=== PATIENT | female | born 1985 | race Caucasian/White ===

== ENCOUNTER 2017-02-13 21:35 | Emergency (ER) | payer MEDICAID, OTHER ==
[~2017-02-13] VITALS: Ht 154.9 cm; Wt 78.0 kg
[~2017-02-13 21:35] MED LIST: IRON18TA PO; PREN1TAB49 PO; PRENATALS
[2017-02-13 22:37] VITALS: Ht 154.9 cm; Wt 78.0 kg
[2017-02-13 23:22] LABS: ADD SCAN DIFF NO
[2017-02-13 23:26] LABS: BASOPHILS % 0.3 % (0.0-2.0); EOSINOPHILS # 0.3 10^3/ul (0.0-0.5); EOSINOPHILS % 3.4 % (0.0-7.0); HEMATOCRIT 35.9 % (37.0-47.0); HEMOGLOBIN 12.5 g/dl (12.0-16.0); LYMPHOCYTES # 3.5 10^3/ul (0.8-2.9); LYMPHOCYTES % 37.5 % (15.0-51.0); MEAN CORPUSCULAR HEMOGLOBIN 31.3 pg (29.0-33.0); MEAN CORPUSCULAR HGB CONC 34.8 g/dl (32.0-37.0); MEAN PLATELET VOLUME 8.8 fl (7.4-10.4); MONOCYTES % 10.3 % (0.0-11.0); NEUTROPHIL # 4.5 10^3/ul (1.6-7.5); NEUTROPHILS % 48.4 % (39.0-77.0); PLATELET COUNT 413 10^3/UL (140-415); RED BLOOD COUNT 3.99 10^6/ul (4.20-5.40); RED CELL DISTRIBUTION WIDTH 12.4 % (11.5-14.5); WHITE BLOOD COUNT 9.3 10^3/ul (4.8-10.8)
--- NOTE | 2017-02-13 23:45 | ERA ---
ER Documentation Chief Complaint Date/Time DATE: 02/13/17 TIME: 23:40 Chief Complaint C/O FEELING "SWOLLEN ALL OVER", SWOLLEN FEET,FEET HURT, ABD PAIN HPI 31-year-old female presenting with a chief complaint of bilateral leg swelling 1 month. Patient also states that there is mild pain at the bottom of her feet with the first few steps in the morning. Patient denies any medical conditions , leg or calf pain, claudication, nausea, vomiting, diarrhea, shortness of breath, or chest pain. ROS All systems reviewed and are negative except as per history of present illness. Medications Home Meds Reported Medications Iron (Iron) 18 Mg Tablet, 18 MG PO 04/27/12 Vits W-Ca,Fe,Fa(<1MG) () 1 Tab Tablet, 1 TAB PO DAILY 04/27/12 Vits W-Ca,Fe,Fa(<1MG) () 1 Tab Tablet, 1 TAB PO 04/01/12 [Prenatals] No Conflict Check 10/19/11 Allergies Allergies: Coded Allergies: No Known Drug Allergies (Verified Allergy, Unknown, 04/27/12) Uncoded Allergies: NONE (Allergy, 10/19/11) PMhx/Soc Medical and Surgical Hx: pt denies Medical Hx, pt denies Surgical Hx History of Surgery: No Anesthesia Reaction: No Hx Neurological Disorder: No Hx Respiratory Disorders: No Hx Cardiac Disorders: No Hx Psychiatric Problems: No Hx Miscellaneous Medical Probl: No Hx Alcohol Use: No Hx Substance Use: No Hx Tobacco Use: No Physical Exam Vitals Vital Signs Date Time Temp Pulse Resp B/P Pulse Ox O2 Delivery O2 Flow Rate FiO2 02/13/17 22:37 97.6 86 18 122/76 100 Physical Exam Const: Well-appearing, overweight 31-year-old female Head: Atraumatic Eyes: Normal Conjunctiva ENT: Normal External Ears, Nose and Mouth. Neck: Full range of motion..~ No meningismus. Resp: Clear to auscultation bilaterally Cardio: Regular rate and rhythm, no murmurs Abd: Soft, non tender, non distended. Normal bowel sounds Skin: No petechiae or rashes Back: No midline or flank tenderness Ext: Mild pitting edema of the feet bilaterally. Dorsalis pedis and posterior tibial pulses are 2+ bilaterally. Neur: Awake and alert. Neurovascularly intact bilaterally. Psych: Normal Mood and Affect Result Diagram: 02/13/17 2315 02/13/17 2315 Results 24 hrs Laboratory Tests Test 02/13/17 23:08 02/13/17 23:15 02/14/17 01:02 Urine Color LT. YELLOW Urine Clarity CLEAR Urine pH 6.0 Urine Specific [place] 1.025 Urine Ketones NEGATIVE Urine Nitrite NEGATIVE Urine Bilirubin NEGATIVE Urine Urobilinogen 1.0 E.U./dL Urine Leukocyte Esterase NEGATIVE Urine Hemoglobin NEGATIVE Urine Glucose NEGATIVE% Urine Total Protein NEGATIVE White Blood Count 9.310^3/ul Red Blood Count 3.9910^6/ul Hemoglobin 12.5g/dl Hematocrit 35.9% Mean Corpuscular Volume 90.0fl Mean Corpuscular Hemoglobin 31.3pg Mean Corpuscular Hemoglobin Concent 34.8g/dl Red Cell Distribution Width 12.4% Platelet Count 58441^3/UL Mean Platelet Volume 8.8fl Neutrophils % 48.4% Lymphocytes % 37.5% Monocytes % 10.3% Eosinophils % 3.4% Basophils % 0.3% Nucleated Red Blood Cells % 0.0/100WBC Neutrophils # 4.510^3/ul Lymphocytes # 3.510^3/ul Monocytes # 1.010^3/ul Eosinophils # 0.310^3/ul Basophils # 0.010^3/ul Nucleated Red Blood Cells # 0.010^3/ul Sodium Level 144mmol/L Potassium Level 3.9mmol/L Chloride Level 105mmol/L Carbon Dioxide Level 27mmol/L Anion Gap 16 Blood Urea Nitrogen 24mg/dl Creatinine 0.70mg/dl Glucose Level 93mg/dl Calcium Level 9.2mg/dl B-Type Natriuretic Peptide 17PG/ML Prothrombin Time 13.2Sec Prothrombin Time Ratio 1.0 INR International Normalized Ratio 1.00 Activated Partial Thromboplast Time 26.4Sec Procedures/MDM Patient's presenting with a chief complaint of bilateral leg swelling. At this time I very little suspicion for VTE as patient lacks any significant risk factors including only a score of 1 with well's criteria. Workup included a CBC , BMP and BNP to evaluate for any emergent pathologies. The laboratory results were largely unremarkable with only a slight elevation and lymphocytes and BUN. I have very little suspicion at this time for acute kidney injury, CHF, venous thromboembolisms or other infectious causes. At this time I am unable to rule out chronic conditions of the heart kidney and liver. Most likely diagnosis at this time is venous incompetence causing swelling of the feet bilaterally. Patient has stable vitals and her current condition is appropriate for discharge. Patient will be discharged with discharge instructions and return precautions. Patient is also be given a list of clinics that she can see for chronic management of her condition. Patient has verbally stated that she understands and agrees to the treatment plan. Departure Diagnosis: Primary Impression: Venous (peripheral) insufficiency Additional Impression: Swelling Condition: Stable Additional Instructions: Follow up with your PCP within the next 1-3 days for a more thorough evaluation and a possible referral to a specialist. Return the the emergency department immediately if symptoms worsen or change. If you have any questions regarding medications, ask your pharmacist or us before you leave. If any adverse reactions occur while taking your medications, discontinue the treatment and return to the emergency department immediately. Take your medications as directed, and complete the entire course of treatment. RAMAN MENDOZA PA-C Feb 13, 2017 23:45
[2017-02-13 23:51] LABS: CALCIUM 9.2 mg/dl (8.4-10.2); CREATININE 0.7 mg/dl (0.44-1.00); POTASSIUM 3.9 mmol/L (3.5-5.1)
[2017-02-14 01:24] LABS: ADD UMIC NO; UR BILIRUBIN (Dip) NEGATIVE (NEGATIVE); UR BLOOD (Dip) NEGATIVE (NEGATIVE); UR CLARITY CLEAR (CLEAR); UR COLOR LT. YELLOW (YELLOW); UR GLUCOSE (Dip) NEGATIVE (NEGATIVE); UR KETONES (Dip) NEGATIVE (NEGATIVE); UR LEUKOCYTE ESTERASE (Dip) NEGATIVE (NEGATIVE); UR NITRITE (Dip) NEGATIVE (NEGATIVE); UR TOTAL PROTEIN (Dip) NEGATIVE (NEGATIVE); UR UROBILINOGEN (Dip) 1.0 E.U./dL (0.1-1.0)
[2017-02-14 01:27] LABS: PROTIME 13.2 Sec (12.2-14.2)
[2017-02-14 01:28] LABS: PARTIAL THROMBOPLASTIN TIME 26.4 Sec (25.0-35.0)
[2017-02-14] MEDS ORDERED: ACET325T33 PO (01:37)
[2017-02-14 01:54] VITALS: BP 142/73; PULSE 85; RESP 16
== END 2017-02-14 01:54 | disposition home or self-care (01) ==
LOC: FTE 21:35
DX: I87.2 Venous insufficiency (chronic) (peripheral) (principal)
CPT/HCPCS: 80048; 81003; 83880; 85025; 85610; 85730; Z7502; 99283

== ENCOUNTER 2018-07-17 01:29 | Emergency (ER) | END 2018-07-17 04:26 | disposition home or self-care (01) ==

== ENCOUNTER 2018-09-19 07:36 | Day surgery (SDC) | payer OTHER ==
[~2018-09-19] VITALS: Ht 154.9 cm; Wt 70.0 kg
[2018-09-19] VITALS (18 sets, daily range): BP systolic 100–140; BP diastolic 11–80; PULSE 56–95; RESP 13–18; Ht 154.9 cm; Wt 70.0 kg
[~2018-09-19 07:36] MED LIST changes: +ACET325T33 PO; +ACETAMINOPHEN 500 MG TAB PO STA; +CEPH-443 PO; +DESFLURANE 15 MIN ONE; +FAMO-96 PO; +HYDR-4011 PO; +IBUP-1542 PO; +ONDA4TAB8 PO
[2018-09-19] MEDS ORDERED: CEFAZOLIN 2 GM/50 ML (PMX) 50 ML IVPB ONE (08:00)
[2018-09-19] MEDS ORDERED: SOD CHLORIDE 0.9% 1,000 ML IV SCH (08:00)
[2018-09-19] MEDS ORDERED: SERT50TA PO (08:24)
[2018-09-19] MEDS ORDERED: BUPIVACAINE 0.5%/EPI (SDV) 30 ML INJ ONE (10:00)
--- NOTE | 2018-09-19 10:36 | PREAC ---
Date/Time of Note Date/Time of Note DATE: 09/19/18 TIME: 10:35 Anesthesia Eval and Record Evaluation Time Pre-Procedure Interview DATE: 09/19/18 TIME: 10:35 Age 32 Sex female NPO: 8 hrs Preoperative diagnosis gall stone Planned procedure lap asad Past Medical History Past Medical History: None Surgery & Anesthesia Issues No known issue Meds Anticoagulation: No Beta Ruben within 24 hr: No Reason Beta Ruben not given: Pt. not on B-Ruben Reported Medications Sertraline Hcl* (Zoloft*) 50 Mg Tablet, 50 MG PO DAILY, #30 TAB 09/19/18 Discontinued Reported Medications Iron (Iron) 18 Mg Tablet, 18 MG PO 04/27/12 Vits W-Ca,Fe,Fa(<1MG) () 1 Tab Tablet, 1 TAB PO DAILY 04/27/12 Vits W-Ca,Fe,Fa(<1MG) () 1 Tab Tablet, 1 TAB PO 04/01/12 [Prenatals] No Conflict Check 10/19/11 Discontinued Scripts Famotidine* (Pepcid*) 20 Mg Tablet, 20 MG PO BID for 10 Days, TAB Prov:KELLY HANDY PA-C 07/17/18 Cephalexin* (Keflex*) 500 Mg Capsule, 500 MG PO BID for 7 Days, CAP Prov:KELLY HANDY PA-C 07/17/18 Ondansetron Hcl* (Zofran*) 4 Mg Tablet, 4 MG PO Q6H for NAUSEA AND/OR VOMITING, #30 TAB Prov:KELLY HANDY PA-C 07/17/18 Ibuprofen* (Motrin*) 600 Mg Tab, 600 MG PO Q6, #30 TAB Prov:KELLY HANDY PA-C 07/17/18 Hydrocodone/Acetaminophen ([place] 5-325 Tablet) 1 Each Tablet, 1 TAB PO Q6H PRN for PAIN, #12 TAB Prov:KELLY HANDY PA-C 07/17/18 Acetaminophen* (Tylenol*) 325 Mg Tablet, 2 TAB PO Q8 PRN for PAIN AND OR ELEVATED TEMP, #20 TAB Prov:RAMAN MENDOZA PA-C 02/14/17 Current Medications Sodium Chloride 1,000 ml @ 75 mls/hr [id number] IV ; Start 1/7/19 at 08:00; Stop 09/19/18 at 21:19 Meds reviewed: Yes Allergies Coded Allergies: No Known Drug Allergies (Verified Allergy, Unknown, 09/19/18) Allergies Reviewed: Yes Labs/Studies Labs Reviewed: Reviewed by anesthesiologist Result Diagram: 09/19/18 0830 09/19/18 0830 Laboratory Tests 09/19/18 08:30 test: Negative Studies: ECG (n/a), CXR (n/a) Pre-procedure Exam Last vitals Vital Signs Date Temp Pulse Resp B/P (MAP) Pulse Ox O2 O2 Flow FiO2 Time Delivery Rate 09/19/18 98.5 95 16 128/80 99 09:22 (96) Airway: Adequate mouth opening Mallampati: Mallampati I Teeth: Normal Lung: Normal Heart: Normal ASA Physical Status ASA physical status: 1 Emergency: None Planned Anesthetic General/MAC: ETT Planned Pain Management Single shot nerve block Pre-operative Attestations Prior to commencing anesthesia and surgery, the patient was re-evaluated, there was verification of: *The patient's identity *The results of appropriate recent lab work and preoperative vital signs *The above evaluation not changing prior to induction *Anesthetic plan, risk benefits, alternative and complications discussed with patient/family; questions answered; patient/family understands, accepts and wishes to proceed. SHERITA COLBERT MD Sep 19, 2018 10:36
[2018-09-19] MEDS ORDERED: BUPIVACAINE 0.5%/EPI (SDV) 30 ML INJ INJ ONE (10:37)
[2018-09-19] MEDS ORDERED: PROPOFOL 20 ML ONE (10:44)
[2018-09-19] MEDS ORDERED: ONDANSETRON 4 MG INJ ONE (10:44)
[2018-09-19] MEDS ORDERED: ROPIVACAINE 0.5 % 30 ML VIAL ONE (10:44)
[2018-09-19] MEDS ORDERED: METOCLOPRAMIDE 10 MG INJ ONE (10:44)
[2018-09-19] MEDS ORDERED: KETOROLAC 30 MG INJ ONE (10:45)
[2018-09-19] MEDS ORDERED: MIDAZOLAM 1 MG/ML 2 ML INJ ONE (10:48)
[2018-09-19] MEDS ORDERED: OXYCODONE/ACETAMINOPHEN (5/325) TAB PO PRN ×2 (11:00)
[2018-09-19] MEDS ORDERED: ONDANSETRON 4 MG INJ IV PRN ×2 (11:00→12:00)
[2018-09-19] MEDS ORDERED: MEPERIDINE 25 MG INJ IV PRN (11:00)
[2018-09-19] MEDS ORDERED: DIPHENHYDRAMINE 50 MG INJ IV PRN (11:00)
[2018-09-19] MEDS ORDERED: HYDROmorphONE 1 MG/5 ML IV SYRINGE IV PRN ×3 (11:00)
[2018-09-19] MEDS ORDERED: CEFAZOLIN 1 GM INJ ONE (11:10)
[2018-09-19] MEDS ORDERED: HYDROCODONE/APAP (5/325) TAB PO PRN ×2 (12:00)
[2018-09-19] MEDS ORDERED: morphine 4 MG/ML VIAL IV PRN (12:00)
--- NOTE | 2018-09-19 12:09 | OPR ---
Date/Time of Note Date/Time of Note DATE: 09/19/18 TIME: 12:02 Operative Report Procedure Date: Sep 19, 2018 Preoperative Diagnosis Cholelithiasis/chronic cholecystitis Postoperative Diagnosis Cholelithiasis/chronic cholecystitis Operation/Procedure Performed Laparoscopic cholecystectomy Surgeon see signature line Enterprise Systems Manager None Anesthesia Type: general Anesthesiologist: SHERITA COLBERT MD Estimated Blood Loss: minimal Transfusion none Specimen Gallbladder Grafts/Implants none Complications none Pt Condition Post Procedure: stable Disposition: PACU Indications The patient is a 32-year-old female who presented to the office with a one-month history of intermittent right upper quadrant abdominal pain. The patient had clinical signs and symptoms of biliary colic and chronic cholecystitis which was confirmed via an ultrasound which showed the presence of gallstones. The patient was scheduled for laparoscopic cholecystectomy; possible open as definitive treatment to prevent further sequelae of gallstone disease which include but are not limited to: Gangrenous cholecystitis, choledocholithiasis, gallstone pancreatitis, ascending cholangitis, etc. All risks and benefits of the procedure including but not limited to: Wound infection, excessive bleeding, common bile duct injury, postoperative biliary leak, retained common bile duct stone, injury to intra-abdominal organs, conversion to open procedure, possible need for subsequent surgeries, etc. were all explained to the patient in full detail. She fully understood and wished to proceed with the procedure. Informed consent was therefore obtained. Procedure Description The patient was brought to the operating room and placed supine on the operating table. Bilateral sequential compression devices were placed on both lower extremities. A dose of broad-spectrum perioperative intravenous antibiotics was given. After the induction of smooth general endotracheal anesthesia the patient's abdomen was prepped and draped in the standard surgical fashion. A tap block was performed by the anesthesiologist upon induction of anesthesia and will be documented by her separately. After performance of the surgical timeout a 5 mm incision was made in the inferior umbilicus and a Veress needle was used to access the intra-abdominal cavity atraumatically. Pneumoperitoneum was then obtained and the Veress needle was exchanged for a 5 mm trocar through which a 5 mm laparoscope was placed. Three further working ports were then placed a 12 mm port in the sub-xiphoid region and two 5 mm ports in the right upper quadrant. All port sites were anesthetized with 0.5% Marcaine with epinephrine prior to incision. Using atraumatic graspers the gallbladder was grasped and retracted superiorly and laterally exposing the area of Freeman's pouch. There were adhesions of the omentum to the anterior surface of the gallbladder and right lateral aspect of the liver. These were taken down using a combination of blunt dissection and hook electrocautery. Dissection was begun in the area of the cystic duct structures using a combination of blunt dissection and hook electrocautery. The cystic duct was identified as it entered straight into the neck of the gallbladder. There was a lot of chronic adhesions and scarring in the area of the cystic duct. The duct was tediously dissected free of surrounding tissues and clipped proximally and distally x 3 and transected using EndoShears. Dissection was then continued posteriorly. The cystic artery was transected using the hook electrocautery and the course of posterior dissection. An accessory vessel was identified from the liver fossa to the gallbladder. Its proximal aspect was clipped and it was transected distally using the electrocautery. The gallbladder was then dissected off the liver bed using electrocautery. Once completely free the gallbladder was placed in an Endo Catch bag and withdrawn through the subxiphoid port site and passed off the field as specimen. Hemostasis was then inspected for and noted to be total. The fascia of the subxiphoid port site was then reapproximated using a juan carlos-close device. Pneumoperitoneum was then released and all remaining trochars were withdrawn under direct vision. The subcutaneous tissues were irrigated with more warm normal saline. The skin was then reapproximated using 4-0 Monocryl sutures in subcuticular fashion. The incisions were cleaned and Dermabond was applied to the incisions and the patient was awoken from anesthesia and transported to the recovery room in stable condition. All counts were correct at the end of the case x 2. RAMAN NINA MD Sep 19, 2018 12:09
--- NOTE | 2018-09-19 12:15 | NUR ---
PACU PT FROM OR ON ROOM AIR NO RESP DISTRESS NO C/O PAIN C/O NAUSEA WAS MEDICATED WITH ZOFRAN 4MG IVP PER ORDER ABDOMEN WITH INCISION SITE WITH DERMOBAND X3
--- NOTE | 2018-09-19 13:15 | NUR ---
PT AWAKE ALERT ROOM AIR VS STABLE NO RESP DISTRESS FAMILY WAS NOTIFIED 22GAGE IV SITEON RT HAND SITE CLEAR ABDOMEN WITH DERMOBAND X3 REPORT GIVEN TO HILTON GILLETTE
--- NOTE | 2018-09-19 15:20 | NUR ---
1330H: Received from PACU, AAOX4, s/p Lap Cholecystectomy. Denies any pain, VS stable. Noted 4 small lap sites to have dermabond, clean dry intact. 1400H: Able to walk w/o difficulty. Discharge instructions provided to patient post Lap Cholecystectomy: Activity and diet to follow. When to take pain medication as well as side effects, to call 911 or go to nearest ER should she have chest pain, sob, palpitations and severe pain unrelieved by pain medication. Explained importance of follow up w/ DR. Jones. Verbalized understanding of health teachings. 1500H: able to nap for 15 minutes. discharge home in stable condition, denies any pain. Discharge home per wheelchair, accompanied by father.
--- NOTE | 2018-09-20 10:00 | PAC ---
Date/Time of Note Date/Time of Note DATE: 09/20/18 TIME: 09:59 Post-Anesthesia Notes Post-Anesthesia Note Last documented vital signs Vital Signs Date Temp Pulse Resp B/P (MAP) Pulse Ox O2 O2 Flow FiO2 Time Delivery Rate 09/19/18 98.5 84 16 119/59 96 Room Air 13:30 (79) Activity: WNL Respiratory function: WNL Cardiovascular function: WNL Mental status: Baseline Pain reasonably controlled: Yes Hydration appropriate: Yes Nausea/Vomiting absent: No SHERITA COLBERT MD Sep 20, 2018 10:00
== END 2018-09-19 15:00 | disposition home or self-care (01) ==
LOC: SDS 07:36
PROVIDERS: ATTEND Surgery
DX: K80.20 Calculus of gallbladder without cholecystitis without obstruction (principal); K80.10 Calculus of gallbladder with chronic cholecystitis without obstruction
CPT/HCPCS: 47562; 80048; 85025; 85610; 85730; 88304; J0690; J1170; J1885; J2250; J2405; J2765; J2795; Z7512; Z7610